=== PATIENT | male | born 1990 | race Caucasian/White ===

== ENCOUNTER 2020-09-09 16:48 | Emergency (ER) | payer SELFPAY ==
--- NOTE | 2020-09-09 17:25 | NUR ---
PT STATED HE DID NOT WANT TO BE SEEN IN ER ANYMORE
== END 2020-09-09 17:15 | disposition left against medical advice (07) ==
LOC: MED 16:48
DX: Z53.21 Procedure and treatment not carried out due to patient leaving prior to being seen by health care provider (principal)